=== PATIENT | male | born 1985 | race Caucasian/White ===

== ENCOUNTER 2018-09-17 18:50 | Emergency (ER) | payer SELFPAY ==
[~2018-09-17] VITALS: Ht 167.6 cm; Wt 76.2 kg
[2018-09-17 19:35] VITALS: Ht 167.6 cm; Wt 76.2 kg
[2018-09-17 21:46] VITALS: BP 135/92
== END 2018-09-17 21:35 | disposition home or self-care (01) ==
LOC: ED 18:50
DX: R51 Headache (principal); R42 Dizziness and giddiness
CPT/HCPCS: J1885

== ENCOUNTER 2018-09-22 02:01 | Emergency (ER) | payer SELFPAY ==
[~2018-09-22] VITALS: Ht 165.1 cm; Wt 68.0 kg
[2018-09-22 02:40] LABS: BASOPHIL % 0.7 % (0-2); PLATELET COUNT 236 x10^3mcL (130-400); RED CELL DISTRIBUTION WIDTH 12.3 % (11.5-14.5)
[2018-09-22 02:43] LABS: CALCIUM 8.4 mg/dL (8.5-10.1); CARBON DIOXIDE 25.6 mmol/L (21-32); CHLORIDE SERUM 102 mmol/L (98-107); CREATININE SERUM 1.2 mg/dL (0.7-1.3); GFR1 > 60 mL/min; GLUCOSE SERUM 165 mg/dL (74-106); POTASSIUM SERUM 3.3 mmol/L (3.5-5.1); SODIUM SERUM 140 mmol/L (136-145)
[2018-09-22 02:52] LABS: ALBUMIN 4.1 g/dL (3.4-5.0); ALKALINE PHOSPHATASE 109 U/L (46-116); ALT/SGPT 76 U/L (16-63); AST/SGOT 27 U/L (15-37); BILIRUBIN TOTAL 0.28 mg/dL (0.20-1.00)
[2018-09-22 02:53] LABS: TOTAL PROTEIN, SERUM 8.5 g/dL (6.4-8.2)
[2018-09-22 04:52] LABS: AMPHETAMINE QUAL UR NONE DETECTED (See below)
[2018-09-22 05:24] VITALS: BP 118/74
== END 2018-09-22 05:24 | disposition home or self-care (01) ==
LOC: ED 02:01
PROVIDERS: Emergency Medicine
DX: R55 Syncope and collapse (principal); R00.2 Palpitations; R11.0 Nausea; R07.89 Other chest pain
CPT/HCPCS: Q0092